=== PATIENT | female | born 1975 ===

== ENCOUNTER → 2022-10-24 07:49 | Outpatient (CLI) | payer OTHER, SELFPAY ==
--- NOTE | ~2022-10-24 | MR_ITS ---
MRI of the left shoulder Technique: Axial proton-density fat-sat images, coronal proton density fat-sat and T2 fat-sat images, and sagittal T1-weighted and T2 fat-sat images were acquired. Following intravenous administration o f 10 cc MultiHance gadolinium, T1-weighted fat-sat imaging was performed in the axial, coronal, and s agittal planes. Clinical History: Labral tear Findings: There is minimal AC joint degenerative change. Coracoclavicular, coracoacromial, and coraco humeral ligaments are intact. Supraspinatus and infraspinatus tendons are intact, with mild tendinosis. No partial or full-thicknes s tear. Subscapularis tendon is intact with minimal tendinosis. Tendon of the long head of the biceps is intact. No labral tear evident. Inferior glenohumeral ligament is intact. No joint effusion or degenerative change at the glenohumera l joint. No fluid distention of the subacromial/subdeltoid bursa. No muscle atrophy or edema. Impression: No rotator cuff or labral tear seen. Mild AC joint degenerative change. Mild rotator cuff tendinosis. Reviewed, dictated and finalized at location . Impression: No rotator cuff or labral tear seen. Mild AC joint degenerative change. Mild rotator cuff tendinosis.
== END ==
DX: S43.432A Superior glenoid labrum lesion of left shoulder, initial encounter (principal); M77.8 Other enthesopathies, not elsewhere classified
CPT/HCPCS: 73223; A9577